=== PATIENT | female | born 1955 | race Caucasian/White ===

== ENCOUNTER → 2018-04-03 11:01 | Outpatient (CLI) | payer MEDICARE, OTHER, SELFPAY ==
--- NOTE | 2018-04-03 | DI.CT.S_ITS ---
PROCEDURE: CT KIDNEY URETER BLADDER (KUB) INDICATIONS: LOWER URINARY TRACT SYMPTOMS TECHNIQUE: Noncontrast 5 mm thick sections acquired from the diaphragms to the symphysis. 5 mm thick coronal and sagittal reformats were then performed. For radiation dose reduction, the following was used: automated exposure control, adjustment of mA and/or kV according to patient size. COMPARISON: None. FINDINGS: Image quality: Excellent. Lung bases: There is mild inferior scarring or atelectasis in the right middle lobe and left lingular. Heart size is normal. Urinary system: No kidney stones. No hydronephrosis or perinephric fat stranding. Both ureters appear non-dilated throughout their expected courses. Bladder wall thickness is normal; no calcified bladder stones. There is mild dilatation of the proximal urethra with urothelial thickening. Other solid organs: Liver is normal in size. Gallbladder appears within normal limits without calcified gallstones. Pancreas is normal in contours. Spleen is normal in size. No adrenal nodules. Peritoneum and bowel: Unenhanced bowel loops demonstrate normal wall thickness and caliber. The appendix is normal in appearance. There is moderate colonic stool suggestive of constipation. No free fluid or air. Nodes and vessels: No retroperitoneal or mesenteric adenopathy by size criteria. Aorta and inferior vena cava are normal in caliber. Abdominal wall: No ventral hernias. Pelvis: No free pelvic fluid. No inguinal hernias or adenopathy. Bones: No suspicious bony lesions. No vertebral body compression fractures. IMPRESSION: 1. No nephrolithiasis or hydronephrosis. No perinephric stranding or fluid collections. 2. Mild proximal urethral dilatation with mild urothelial thickening. Findings suggest sequelae of a urinary tract infection. Recommend correlation with urinalysis. 3. No bladder wall thickening to definitely suggest cystitis. Dictated by: Kd Blake M.D. on 04/03/2018 at 13:33 Approved by: Kd Blake M.D. on 04/03/2018 at 14:01
== END ==
PROVIDERS: Family Provider Family Medicine; PCP Family Medicine; Visit Provider Urology
DX: N36.8 Other specified disorders of urethra (principal); R30.0 Dysuria
CPT/HCPCS: 74176